=== PATIENT | male | born 2000 | race Caucasian/White ===

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

== ENCOUNTER → 2020-01-27 | Outpatient (CLI) | payer OTHER ==
[~2020-01-27] MED LIST changes: -NS 1,000 ML IV ONE
--- NOTE | 2020-01-27 15:52 | REP ---
REASON: Followup pulmonary nodule and ground glass opacity. COMPARISON: 11/24/2019. The mediastinum and pulmonary navin are unchanged showing no evidence of a mass or adenopathy. There no pleural or pericardial effusions. There is no change in the imaged upper abdomen or imaged osseous structures. Evaluation of the lung thompson show interval significant improvement in the patchy ground-glass opacities seen previously. There is a cystic air space in the anterior segment of the left upper lobe which is slightly improved. The pleural based nodule seen in the inferior right middle lobe is unchanged. This has a central calcification consistent with benignity. IMPRESSION: Interval improvement as described above, but with some residua. The cystic air space probably represents a postinfectious pneumatocele. This should be correlated clinically with appropriate followup if necessary. Electronically Signed by Peyman Florentino DO 01/27/2020 04:06 P
== END ==
LOC: M RAD 13:30
PROVIDERS: ATTEND Internal Medicine Pulmonary Disease
DX: R91.8 Other nonspecific abnormal finding of lung field (principal)

== ENCOUNTER → 2020-02-10 | Outpatient (CLI) | payer OTHER ==
[~2020-02-10] MED LIST changes: +LISI-542 PO
[2020-02-10 13:41] LABS: BASO # 0.1 10^3/uL (0.0-0.2); BASO % 0.7 % (0.0-1.0); EOS # 0.1 10^3/uL (0.0-0.5); HEMATOCRIT 44.4 % (42.0-52.0); HEMOGLOBIN 14.8 g/dl (13.5-17.5); LYMPH # 3.8 10^3/uL (1.5-5.0); LYMPH % 42.7 % (24.0-44.0); MEAN CORPUSCULAR HEMOGLOBIN 29.7 pg (27.0-33.0); MEAN CORPUSCULAR HGB CONC 33.3 g/dl (32.0-36.5); MONO # 0.9 10^3/uL (0.0-0.8); MONO % 10.4 % (0.0-5.0); PLATELET COUNT, AUTOMATED 339 10^3/uL (150-450); RED BLOOD COUNT 4.99 10^6/uL (4.30-6.10); WHITE BLOOD COUNT 8.8 10^3/uL (4.0-10.0)
[2020-02-10 14:04] LABS: ALBUMIN 4.3 GM/DL (3.2-5.2); ALT/SGPT 43 U/L (12-78); BILIRUBIN,TOTAL 0.6 MG/DL (0.2-1.0); BLOOD UREA NITROGEN 10 MG/DL (7-18); CALCIUM LEVEL 9.7 MG/DL (8.5-10.1); CARBON DIOXIDE LEVEL 28 MEQ/L (21-32); CHLORIDE LEVEL 107 MEQ/L (98-107); GLUCOSE, FASTING 88 MG/DL (70-100); POTASSIUM SERUM 3.9 MEQ/L (3.5-5.1); SODIUM LEVEL 139 MEQ/L (136-145); TOTAL PROTEIN 7.1 GM/DL (6.4-8.2)
== END ==
LOC: M LAB 13:00
PROVIDERS: ATTEND Internal Medicine Hematology
DX: Z86.711 Personal history of pulmonary embolism (principal); Z86.718 Personal history of other venous thrombosis and embolism

== ENCOUNTER → 2020-08-30 | Outpatient (CLI) | payer OTHER ==
[~2020-08-30] MED LIST changes: +ELIQ2.5T PO
--- NOTE | 2020-08-30 08:23 | REP ---
INDICATION: FATTY LIVER COMPARISON: None TECHNIQUE: Real time B-mode hammer scale ultrasound examination using curved array transducer. FINDINGS: Liver, spleen, and pancreas are normal in contour, size, echogenicity, and overall appearance. No focal hepatic, splenic or pancreatic lesions are identified. Spleen measures 8.3 x 4.2 x 4.9 cm (SI 374). Gallbladder is normal without gallstones, wall thickening, or pericholecystic fluid. No biliary ductal dilatation is appreciated although the common bile duct measures 4.2 mm in diameter. The bilateral kidneys are normal in rate form shape without hydronephrosis or obvious abnormality. Right kidney measures 10.3 x 5.9 x 4.3 cm. Left kidney measures 10.3 x 5.4 x 5.0 cm. Visualized abdominal aorta appears normal. No obvious ascites. IMPRESSION: Essentially normal age-appropriate complete abdominal ultrasound. <Electronically signed by Parker Schaefer > 08/30/20 0820
== END ==
LOC: M RAD 07:07
PROVIDERS: ATTEND Internal Medicine Hematology & Oncology
DX: K76.0 Fatty (change of) liver, not elsewhere classified (principal)